=== PATIENT | female | born 1965 | race Caucasian/White ===

== ENCOUNTER → 2017-08-24 15:26 | Outpatient (CLI) | payer OTHER, SELFPAY ==
--- NOTE | 2017-08-24 | DI.US.S_ITS ---
PROCEDURE: US PERIPH VENOUS LOW EXTREM LT INDICATIONS: LEFT LEG PAIN AND SWELLING TECHNIQUE: Real-time imaging, as well as color and pulse Doppler interrogation, were performed of the lower extremity deep veins from the inguinal ligament to the popliteal fossa. COMPARISON: None. FINDINGS: The deep veins are normally compressible, and free of intraluminal thrombus. Color and pulse Doppler demonstrate normal phasic intraluminal flow. There is normal augmentation response to distal compression maneuver. IMPRESSION: No evidence of left lower extremity deep vein thrombosis. Dictated by: Ezequiel Vergara M.D. on 08/24/2017 at 15:02 Approved by: Ezequiel Vergara M.D. on 08/24/2017 at 15:02
== END ==
PROVIDERS: PCP Family Medicine; Referring Provider Orthopaedic Surgery; Visit Provider Physician Assistant Surgical
DX: M79.605 Pain in left leg (principal); M79.9 Soft tissue disorder, unspecified
CPT/HCPCS: 93971

== ENCOUNTER 2018-01-26 09:46 | Outpatient (CLI) | payer OTHER, SELFPAY ==
[2018-01-26] VITALS (11 sets, daily range): BP systolic 115–154; BP diastolic 70–99; PULSE 77–85; RESP 11–18; TEMP 35.8; O2SAT 99–100
--- NOTE | 2018-01-26 09:49 | DI.RAD.S_ITS ---
PROCEDURE: PAIN L INTERLAMINAR/CAUDAL INJ INDICATIONS: SPINAL STENOSIS FINDINGS: Fluoroscopic spot filming was performed to verify placement of spinal needles at the left L5-S1 level(s), as labeled on the films. Appropriate location(s) of the needle tip(s) was confirmed by injection of iodinated contrast. Dictated by: Tom Reis M.D. on 01/26/2018 at 13:32 Approved by: Tom Reis M.D. on 01/26/2018 at 13:33
[2018-01-26] MEDS: MIDAZOLAM 5 MG/5 ML VIAL IV (10:10)
[2018-01-26] MEDS: BUPIVACAINE 0.25% (PF) VIAL 2 ML INJ (10:10)
[2018-01-26] MEDS: IOPAMIDOL 15 ML VIAL 3 ML INJ (10:10)
[2018-01-26] MEDS: DEXAMETHASONE 10 MG/ML VIAL 20 MG INJ (10:10)
[2018-01-26] MEDS: methylPREDNISolone acetate 80 MG/ML VIAL INJ (10:10)
[2018-01-26] MEDS: fentaNYL 100 MCG/2 ML INJ 50 MCG IV (10:28)
--- NOTE | 2018-01-26 10:38 | PC.NURSE ---
procedure finished, pt able to get off table and into wheelchair w/o difficulty, pt awake and vss. taking pt back to pre procedure room.
--- NOTE | 2018-01-26 10:46 | P.PCN_ITS ---
Procedures Date/Time Date of procedure: 01/26/18 Time of procedure: 10:44 General Procedure description: PROVIDER: Artur Martinez DO Operative Note PREOP DIAGNOSIS 1. HNP WITH RADICULAR FEATURES, 2. MULTILEVEL CENTRAL STENOSIS, POST OP DIAGNOSIS 1. HNP WITH RADICULAR FEATURES, 2. MULTILEVEL CENTRAL STENOSIS, PROCEDURES 1. FLUORSCOPICALLY GUIDED CONTRAST CONTROLLED INTERLAMINAR EPIDURAL STEROID INJECTION - L5/S1 PHYSICIAN: Artur Martinez DO INDICATIONS Adriana is referred by Dr. Moy for treatment of Bilateral Foraminal Stenosis L>R LE symptoms. FINDINGS Multilevel Central Spinal Stenosis with Nerve Root Compression DESCRIPTION OF PROCEDURE Fluoroscopically guided, contrast-controlled L5/S1 translaminar epidural steroid injection. Following denial of allergy and review of potential side effects and complications, including, but not necessarily limited to, infection, allergic reaction, local tissue breakdown, temporary as well as permanent nerve injury, paralysis, stroke and possible , the patient indicated that the patient understood and agreed to proceed. An informed consent document was signed by the patient, witnessed by a nurse, and placed in the patient's chart. Additionally, other treatment options including modalities, medications, and physical therapy were reviewed with the patient. After review of previous anaesthesic history and IV conscious sedation the patient was deemed safe to proceed with todays procedure with IV conscious sedation as ASA class II designation. Safety time-out was performed to confirm patient ID, procedure to be performed and site of procedure. IV sedation was accomplished with a combination of 5mg of Versed and 50mcg of Fentanyl administered by the RN after DO order, titrated to patient comfort during the course of the procedure while the patient remained responsive to all verbal commands. In the prone position, following sterile prep and drape of the lumbar region, the L5/S1 translaminar space was identified fluoroscopically. The skin was anesthetized via a 25-gauge, 1.5-inch needle with 1% lidocaine solution. At this point, a 22-gauge short bevel spinal needle was atraumatically introduced and advanced under fluoroscopic guidance into the region of the L5/S1 translaminar space. Depth was confirmed on lateral view. Radiological data, including multiple fluoroscopic views of the lumbar spine, reveal a spinal needle at the L5/S1 translaminar space. Lateral views then show placement of the needle in the epidural space. Subsequent views show contrast material flowing superiorly and inferiorly in the epidural space. No vascular or intrathecal uptake is observed. At this point, using loss of resistance technique with saline and air, the epidural space was entered. This was confirmed following negative aspiration with injection of approximately 1.5 cc of Isovue 200, showing excellent epidural flow without vascular or intrathecal uptake. At this point, 1 cc of 1 % lidocaine solution combined with 3 cc or 20 mg of dexamethasone and 80mg Depo medrol was injected without incident. The patent tolerated the procedure without signs of symptoms of complications prior to transfer to the recovery area for further monitoring. The patient was then transferred to the recovery area where they were observed for an appropriate period of time after the injection. The patient reported a VAS score of 6 prior to the procedure and a post-procedure VAS of 0. Total Fluoroscopy Time: 11.8 seconds Total Conscious Sedation Time: 24min POST OP INSTRUCTIONS The patient was provided a Pain Log to continue to record their response to the target-specific procedure prior to follow-up visit with their referring physician. Additionally, specific post-injection care instructions and a contact number to our office were provided if concerns arise regarding possible complications associated with the procedure are suspected. Artur Martinez, Complications: none
== END 2018-01-26 11:12 | disposition home or self-care (01) ==
LOC: RAD 09:48
PROVIDERS: PCP Ophthalmology; Visit Provider Physical Medicine & Rehabilitation
DX: M51.27 Other intervertebral disc displacement, lumbosacral region (principal); M96.1 Postlaminectomy syndrome, not elsewhere classified
CPT/HCPCS: 62323; 99152; 99153; J1040; J1100; J2250; J3010

== ENCOUNTER 2018-10-20 12:08 | Outpatient (CLI) | payer OTHER, SELFPAY ==
[2018-10-20] VITALS (8 sets, daily range): BP systolic 114–147; BP diastolic 71–97; PULSE 87–99; RESP 16–18; TEMP 36.2; O2SAT 95–100
--- NOTE | 2018-10-20 12:11 | DI.RAD.S_ITS ---
PROCEDURE: PAIN L INTERLAMINAR/CAUDAL INJ INDICATIONS: SPINAL STENOSIS FINDINGS: Fluoroscopic spot filming was performed to verify placement of spinal needles at the L5-S1 level(s), as labeled on the films. Appropriate location(s) of the needle tip(s) was confirmed by injection of iodinated contrast. IMPRESSION: Fluoroscopy for pain management. Dictated by: Kadi Singleton M.D. on 10/20/2018 at 14:45 Approved by: Kadi Singleton M.D. on 10/20/2018 at 14:45
[2018-10-20] MEDS: MIDAZOLAM 5 MG/5 ML VIAL IV (13:15)
[2018-10-20] MEDS: fentaNYL 100 MCG/2 ML INJ 50 MCG IV (13:15)
[2018-10-20] MEDS: IOPAMIDOL 15 ML VIAL 3 ML INJ (13:22)
[2018-10-20] MEDS: BUPIVACAINE 0.25% (PF) VIAL 2 ML INJ (13:23)
[2018-10-20] MEDS: BETAMETHASONE 30 MG/5 ML MDV 12 MG INJ (13:23)
--- NOTE | 2018-10-20 13:27 | PC.NURSE ---
Pt tolerated procedure well. Although her legs were numb bilaterally, so we transferred her with the gurney. She was able to slide herself onto the gurney from the table. Handed report off to Taylor SOTO for continued monitoring.
--- NOTE | 2018-10-20 13:27 | PM.PROC.1 ---
Procedures Date/Time Date of procedure: 10/20/18 Time of procedure: 13:27 General Procedure description: PROVIDER: Artur Martinez DO Operative Note PREOP DIAGNOSIS 1. HNP WITH RADICULAR FEATURES, 2. MULTILEVEL CENTRAL STENOSIS, POST OP DIAGNOSIS 1. HNP WITH RADICULAR FEATURES, 2. MULTILEVEL CENTRAL STENOSIS, PROCEDURES 1. FLUORSCOPICALLY GUIDED CONTRAST CONTROLLED INTERLAMINAR EPIDURAL STEROID INJECTION - L5/S1 PHYSICIAN: Artur Martinez DO INDICATIONS Adriana is referred by Dr. Moy for treatment of Bilateral Foraminal Stenosis L>R LE symptoms. FINDINGS Multilevel Central Spinal Stenosis with Nerve Root Compression DESCRIPTION OF PROCEDURE Fluoroscopically guided, contrast-controlled L5/S1 translaminar epidural steroid injection. Following review of allergy and review of potential side effects and complications, including, but not necessarily limited to, infection, allergic reaction, local tissue breakdown, temporary as well as permanent nerve injury, paralysis, stroke and possible , the patient indicated that the patient understood and agreed to proceed. An informed consent document was signed by the patient, witnessed by a nurse, and placed in the patient's chart. Additionally, other treatment options including modalities, medications, and physical therapy were reviewed with the patient. After review of previous anaesthesic history and IV conscious sedation the patient was deemed safe to proceed with todays procedure with IV conscious sedation as ASA class II designation. Safety time-out was performed to confirm patient ID, procedure to be performed and site of procedure. IV sedation was accomplished with a combination of 3mg of Versed and 50mcg of Fentanyl administered by the RN after DO order, titrated to patient comfort during the course of the procedure while the patient remained responsive to all verbal commands. In the prone position, following sterile prep and drape of the lumbar region, the L5/S1 translaminar space was identified fluoroscopically. The skin was anesthetized via a 25-gauge, 1.5-inch needle with 1% lidocaine solution. At this point, a 22-gauge short bevel spinal needle was atraumatically introduced and advanced under fluoroscopic guidance into the region of the L5/S1 translaminar space. Depth was confirmed on lateral view. Radiological data, including multiple fluoroscopic views of the lumbar spine, reveal a spinal needle at the L5/S1 translaminar space. Lateral views then show placement of the needle in the epidural space. Subsequent views show contrast material flowing superiorly and inferiorly in the epidural space. No vascular or intrathecal uptake is observed. At this point, using loss of resistance technique with saline and air, the epidural space was entered. This was confirmed following negative aspiration with injection of approximately 1.5cc of Isovue 200, showing excellent epidural flow without vascular or intrathecal uptake. At this point, 1cc of 1% lidocaine solution combined with 3cc or 20mg of dexamethasone and 6mg of betamethasone was injected without incident. The patent tolerated the procedure without signs of symptoms of complications prior to transfer to the recovery area for further monitoring. The patient was then transferred to the recovery area where they were observed for an appropriate period of time after the injection. The patient reported a VAS score of 6 prior to the procedure and a post-procedure VAS of 0. Total Fluoroscopy Time: 11.8 seconds Total Conscious Sedation Time: 24min POST OP INSTRUCTIONS The patient was provided a Pain Log to continue to record their response to the target-specific procedure prior to follow-up visit with their referring physician. Additionally, specific post-injection care instructions and a contact number to our office were provided if concerns arise regarding possible complications associated with the procedure are suspected. Artur Martinez DO
[2018-10-20] MEDS: DEXAMETHASONE 10 MG/ML VIAL 20 MG INJ (13:39)
== END 2018-10-20 15:40 | disposition home or self-care (01) ==
LOC: RAD 12:09
PROVIDERS: PCP Ophthalmology; Visit Provider Physical Medicine & Rehabilitation
DX: M51.17 Intervertebral disc disorders with radiculopathy, lumbosacral region (principal); M48.07 Spinal stenosis, lumbosacral region
CPT/HCPCS: 62323; 99152; J0702; J1100; J2250; J3010

== ENCOUNTER → 2019-01-11 08:35 | Outpatient (CLI) | payer OTHER, SELFPAY ==
[2019-01-11 09:43] LABS: Appearance Urine UA CLEAR; Bilirubin Urine UA NEGATIVE (NEGATIVE); Color Urine UA YELLOW; Glucose Urine UA NEGATIVE (Negative); Ketones Urine UA NEGATIVE (NEGATIVE); Leukocyte Esterase Urine UA TRACE (NEGATIVE); Nitrite Urine UA POSITIVE (Negative); Occult Blood Urine UA NEGATIVE (Negative); Protein Urine UA NEGATIVE (Negative); Urobilinogen Urine UA 0.2 E.U./dL (0.2)
[2019-01-11 09:55] LABS: RBC Urine 0-1/HPF (0-5/HPF)
[2019-01-11 09:56] LABS: Add Manual Diff / Slide Review NO; Bacteria Urine Many (>30); Basophils Absolute Auto 0 /uL (0-100); Basophils Percent Auto 1.2 % (0-2); Culture Indicated Urine Specimen Cultured; Eosinophils Absolute Auto 100 /uL (0-450); Eosinophils Percent Auto 2.7 % (2-4); Hemoglobin 12.7 g/dL (12.0-16.0); Lymphocytes Absolute Auto 1500 /uL (1100-4500); Lymphocytes Percent Auto 36.5 % (25-40); Mean Corpuscular HGB Conc 33.5 % (30-36); Mean Corpuscular Hemoglobin 29.4 PG (26-34); Mean Corpuscular Volume 87.9 fL (80-100); Monocytes Absolute Auto 300 /uL (0-900); Monocytes Percent Auto 6.9 % (3-14); Neutrophils Absolute Auto 2100 /uL (1500-7000); Neutrophils Percent Auto 52.7 % (50-75); Platelet Count 201 X10^3/uL (150-400); Red Blood Cell Count 4.33 X10^6/uL (4.0-5.2); Red Cell Distribution Width 12.6 % (11.6-14.8); Squamous Epithelial Cell Urine 1-5 /HPF (0-5/HPF); WBC Urine 5-10/HPF (0-5/HPF)
[2019-01-11 10:10] LABS: Alanine Aminotransferase 53 IU/L (9-52); Albumin 4.3 g/dL (3.5-5.0); Albumin Globulin Ratio 1.5 (1.0-2.8); Alkaline Phosphatase 77 U/L (38-126); Aspartate Aminotransferase 37 IU/L (14-36); Bilirubin Total 0.6 mg/dL (0.2-1.3); Blood Urea Nitrogen 18 mg/dL (7-17); Calcium 8.9 mg/dL (8.4-10.2); Carbon Dioxide 29 mmol/L (22-32); Chloride 103 mmol/L (98-107); Cholesterol 169 mg/dL (140-199); Estimated Glomerular Filt Rate > 60.0 mL/min (>60); Globulin 2.9 g/dL (1.7-4.1); Glucose 95 mg/dL (70-100); HDL Cholesterol 67 mg/dL (40-60); HEMOLYSIS < 15 (0-50); LDL Cholesterol Calculated 84 mg/dL (<100); Sodium 141 mmol/L (137-145); Total Protein 7.2 g/dL (6.3-8.2); Triglycerides 88 mg/dL (35-150)
[2019-01-11 10:40] LABS: Thyroid Stimulating Hormone 2.68 uIU/mL (0.47-4.68)
== END ==
PROVIDERS: PCP Ophthalmology; Visit Provider Family Medicine
DX: E66.9 Obesity, unspecified (principal); I10 Essential (primary) hypertension; M79.7 Fibromyalgia; Z13.220 Encounter for screening for lipoid disorders; Z13.29 Encounter for screening for other suspected endocrine disorder
CPT/HCPCS: 36415; 80053; 80061; 81003; 81015; 84443; 85025; 87077; 87086; 87186

== ENCOUNTER → 2019-06-10 09:40 | Outpatient (CLI) | payer OTHER, SELFPAY ==
--- NOTE | 2019-06-10 09:41 | DI.MG.S_ITS ---
BILATERAL DIGITAL SCREENING MAMMOGRAM 3D/2D WITH CAD: 06/10/2019 CLINICAL: Routine screening. Comparison is made to exams dated: 02/28/2018 mammogram, 10/25/2015 mammogram, and 10/10/2012 mammogram - [facility]. The tissue of both breasts is predominantly fatty. Current study was also evaluated with a Computer Aided Detection (CAD) system. No significant masses, calcifications, or other findings are seen in either breast. There has been no significant interval change. IMPRESSION: NEGATIVE There is no mammographic evidence of malignancy. A 1 year screening mammogram is recommended. This exam was interpreted at Station ID: [id number]. NOTE: For mammograms, a report in lay terms will be sent to the patient. Approximately 15% of breast malignancies will not be visualized mammographically. In the management of a palpable breast mass, a negative mammogram must not discourage biopsy of a clinically suspicious lesion. Electronically Signed By: Amy siddiqui/kari:06/10/2019 11:24:44 letter sent: Normal Exam ACR BI-RADS Category 1: Negative 3341F
== END ==
PROVIDERS: Referring Provider Family Medicine; Visit Provider Family Medicine
DX: Z12.31 Encounter for screening mammogram for malignant neoplasm of breast (principal)
CPT/HCPCS: 77063; 77067

== ENCOUNTER → 2019-12-24 10:38 | Outpatient (CLI) | payer OTHER, SELFPAY ==
[2019-12-25 13:25] LABS: COVID19 Sendout Not Detected (Not Detect)
== END ==
PROVIDERS: PCP Family Medicine; Visit Provider Nurse Practitioner
DX: Z11.59 Encounter for screening for other viral diseases (principal)
CPT/HCPCS: 87635

== ENCOUNTER 2019-12-27 09:09 | Day surgery (SDC) | payer OTHER, SELFPAY ==
--- NOTE | 2019-12-27 | PATH_ITS ---
[facility] Accession Number: [id number] . 01 Material submitted: . colon - RANDOM COLON BIOPSIES . 01 Clinical history: . SDC . 02 Diagnosis: Random Colon, Biopsies: Colonic mucosa with no diagnostic abnormality. Negative for active, chronic, and microscopic colitis. Negative for dysplasia and malignancy. . MRV 12/29/2019 1139 Local . 02 Electronically signed: . Mandie Lilly MD, Pathologist NPI- [id number] . 01 Gross description: . Received in formalin, labeled random colon biopsies, and consists of multiple morales fragments of soft tissue measuring 1.5 x 1.0 x 0.3 cm in aggregate. The specimen is entirely submitted in cassette A1. (EA/[id number]) /V 12/28/2019 1239 Local . 02 Pathologist provided ICD-10: R19.7 . 02 CPT . 788777 Performed at: 01 [facility] [address], [place], [place] [id number] MD Herrera Og MD Phone: [phone] Performed at: 02 [facility] [address] [place], [place] [id number] MD Mandie Lilly MD Phone: [phone]
[2019-12-27 09:40] VITALS: BP 145/88; PULSE 99; RESP 16; TEMP 36.6; O2SAT 97; BMI 54.9
[2019-12-27] MEDS: LACTATED RINGERS 1,000 ML 42 ML IV (10:19)
--- NOTE | 2019-12-27 11:55 | PM.HP.1 ---
History of Present Illness History of Present Illness Chief complaint: [facility] – [place] Patient History Medical History Abnormal Pap smear of cervix (Inactive) Acute pain of right knee (Acute) Anxiety (Acute) Anxiety (Chronic) Arthritis of right knee (Acute) Back pain (Acute) Bilateral knee pain (Acute) Bilateral primary osteoarthritis of knee (Acute) BMI 50.0-59.9, adult (Acute) Carpal tunnel syndrome on both sides (Acute) Chicken pox (Resolved) Chronic back pain (Chronic) Depression (Acute) Difficult intravenous access (Acute) Endometriosis (Inactive) Essential hypertension (Acute) FH: ROSA-BSO (total abdominal hysterectomy and bilateral salpingo-oophorectomy) (Acute) Fibromyalgia (Acute) Fibromyalgia (Chronic) Foot pain (Chronic ~2013) Foraminal stenosis of lumbosacral region (Chronic) Fractures (Resolved ~2013) Heavy menstrual period (Inactive) Herniated nucleus pulposus, L5-S1 (Chronic) History of gastrointestinal disease (Chronic ~2008) History of small bowel obstruction (Acute) HTN (hypertension) (Chronic ~2016) Impaired vision (Acute) Insomnia (Acute) Irregular menstrual cycle (Inactive) Irritable bowel syndrome (Chronic) Liver hemangioma (Acute) Lumbar post-laminectomy syndrome (Chronic) Lumbosacral radiculopathy at L5 (Chronic) Mumps (Resolved) Neuropathy (Acute) Neuropathy of both feet (Acute) Obesity (Acute) Obesity (Chronic) Osteoarthritis (Chronic) Ovarian cyst (Inactive) Painful menstrual periods (Inactive) Paresthesia of lower extremity (Chronic) Peripheral neuropathy (Chronic) Pinched nerve (Acute) Polyarthritis (Acute) Polyarthritis (Chronic) PTSD (post-traumatic stress disorder) (Acute) Shoulder pain (Chronic) Spinal stenosis (Acute) Trigger finger (Acute) Vision disorder (Chronic) Vitamin D deficiency (Acute) Surgical History Anesthesia (Resolved) Cervical vertebral fusion (Acute) H/O left knee surgery (Acute) H/O reduction mammoplasty (Acute) H/O removal of cyst (Acute) H/O shoulder surgery (Acute) H/O sinus surgery (Acute) H/O toe surgery (Acute) History of abdominal surgery (Resolved) History of bladder suspension procedure (Acute) History of bowel resection (Acute) History of carpal tunnel release (Resolved) History of cholecystectomy (Acute) History of gynecologic surgery (Resolved) Family & Social History Family History Mother Arthritis Hypertension Grandfather History of heart disease Grandmother Cancer Stroke Social History: household members spouse Tobacco & Substance use: Smoking Status Never smoker alcohol intake never Substance Use Type does not use Meds Home Medications and Allergies Home Medications Medication Instructions Recorded Confirmed Type gabapentin 600 mg tablet 600 mg PO QID #360 tab 07/10/19 12/27/19 Rx celecoxib 200 mg capsule 200 mg PO BID #180 cap 10/24/19 12/27/19 Rx clonazepam 1 mg tablet 1 mg PO DAILY PRN #15 tab 12/05/19 12/27/19 Rx losartan 25 mg tablet 25 mg PO DAILY #90 tab 12/05/19 12/27/19 Rx losartan 50 mg tablet 50 mg PO DAILY #90 tab 12/05/19 12/27/19 Rx Allergies Allergy/AdvReac Type Severity Reaction Status Date / Time penicillin G Allergy Mild Rash Verified 12/27/19 09:35 cephalexin Allergy Unknown Hives Verified 12/27/19 09:35 oxycodone AdvReac Mild vomitting Verified 12/27/19 09:35 Review of Systems Review of Systems ROS: Yes All systems reviewed with the patient and are negative except as otherwise documented Exam Vital Signs (past 8 hours): - 12/27/19 09:40 Temperature 97.8 F Pulse Rate 99 H Respiratory Rate 16 Blood Pressure 145/88 H Pulse Oximetry 97 Oxygen Delivery Method Room Air Narrative Exam Narrative: Awake alert and oriented x3, pupils equal round reactive to light, oropharynx clear, heart regular rate and rhythm, lungs clear to auscultation bilaterally, abdomen nontender and nondistended, extremities without edema, no gross neurologic deficits noted Assessment & Plan Assessment & Plan narrative: Unexplained diarrhea for colonoscopy COVID-19 COVID-19 status: Negative
[2019-12-27] MEDS: fentaNYL 250 MCG/5 ML INJ IV (12:11)
[2019-12-27] MEDS: MIDAZOLAM 5 MG/5 ML VIAL IV (12:14)
[2019-12-27 12:29] VITALS: BP 129/80; PULSE 88; RESP 16; TEMP 36.4; O2SAT 98
--- NOTE | 2019-12-27 12:33 | PM.OP.ENDO ---
Operative Date/Time/Diagnoses Date of procedure: 12/27/19 Procedure & Clinicians Study performed: Colonoscopy with biopsy Moderate conscious sedation was administered by the endoscopy nurse and supervised by the endoscopist. The following parameters were monitored: Oxygen saturation, heart rate, blood pressure, and response to care. 8 mg midazolam and 150 mcg fentanyl given Same procedure as scheduled: Yes Indications: Unexplained diarrhea. Last colonoscopy was 10 years ago. Reports a history of colon polyps Procedure Notes Procedure in detail: Prior to the procedure, history and physical was performed, and patient medications and allergies were reviewed. Preprocedure nursing history and assessment was reviewed. Patient identification and proposed procedure were verified by the physician and nurse in the procedure room. The physical status of the patient was reassessed after the procedure. After informed consent was obtained including risks, benefits, and alternatives, the scope was passed under direct vision. Throughout the procedure, the patient's blood pressure, pulse, and oxygen saturations were monitored continuously. The colonoscope was introduced through the anus and advanced to the cecum as identified by the appendiceal orifice and ileocecal valve. The patient tolerated the procedure well. Bowel prep was deemed adequate to detect polyps greater than 5 mm. Digital rectal examination and perianal examinations were unremarkable. Retroflexion in the rectum revealed grade 1 internal hemorrhoids. The entire examined colon was normal appearing. Biopsies were taken throughout the entire colon to rule out microscopic colitis The terminal ileum was normal appearing Impression: Internal hemorrhoids Normal appearing colonic mucosa. Biopsied. Normal appearing terminal ileum Sedation minutes: 18 Complications: other (EBL minimal. No complications) Post-procedure Plan for aftercare: Follow-up pathology results Resume home medications Resume previous diet Follow-up with Dr. Alberto as previously recommended Patient has a contact number available for emergencies. The signs and symptoms of potential delayed complications were discussed with the patient. Return to normal activities tomorrow. Written discharge instructions were provided to the patient. Discharge home with escort
[2019-12-27 12:34] VITALS: BP 136/80; PULSE 95; RESP 20; O2SAT 98
[2019-12-27 12:38] VITALS: BP 115/75; PULSE 88; RESP 16; TEMP 36.8; O2SAT 98
[2019-12-27 12:57] VITALS: BP 147/76; PULSE 92; RESP 16; TEMP 37.1; O2SAT 99
== END 2019-12-27 12:58 | disposition home or self-care (01) ==
PROVIDERS: PCP Family Medicine; Referring Provider Family Medicine; Visit Provider Internal Medicine
PROC: 0DJD8ZZ Inspection of Lower Intestinal Tract, Via Natural or Artificial Opening Endoscopic (ICD-10-PCS; CPT 45378; principal; 2019-12-27 10:30)
DX: R19.7 Diarrhea, unspecified (principal); K64.0 First degree hemorrhoids; Z86.010 Personal history of colon polyps; I10 Essential (primary) hypertension; E66.9 Obesity, unspecified; M79.7 Fibromyalgia; F41.9 Anxiety disorder, unspecified; F32.9 Major depressive disorder, single episode, unspecified; Z68.43 Body mass index [BMI] 50.0-59.9, adult
CPT/HCPCS: 45380; J2250; J3010

== ENCOUNTER → 2020-01-22 08:58 | Outpatient (CLI) | payer OTHER, SELFPAY ==
--- NOTE | 2020-01-22 | DI.CT.S_ITS ---
PROCEDURE: CT ABDOMEN PELVIS W CON INDICATIONS: Generalized abdominal pain TECHNIQUE: After the administration of oral and intravenous contrast, 5 mm thick sections acquired from the diaphragms to the symphysis. 5 mm thick coronal and sagittal reformats were performed. For radiation dose reduction, the following was used: automated exposure control, adjustment of mA and/or kV according to patient size. COMPARISON: None. FINDINGS: Image quality: Excellent. ABDOMEN: Lung bases: Right basilar atelectasis. Heart size is normal. Solid organs: There is hepatic steatosis. Liver is normal in size. There is a 1.0 x 1.5 cm low-density nodule in the right hepatic lobe (segment VII). Gallbladder is surgically absent . Biliary system is non-dilated. Pancreas enhances normally. Spleen is normal in size and enhancement. No adrenal nodules. Kidneys are normal in size and enhancement, without hydronephrosis. There is a large cyst in left kidney measuring 6.7 x 7.0 x 8.3 cm. Peritoneum and bowel: Stomach, small bowel, and colon loops are normal in caliber and wall thickness. No free fluid or air. Nodes and vessels: No retroperitoneal or mesenteric adenopathy. Aorta and inferior vena cava are normal in caliber. Miscellaneous: No ventral hernias. PELVIS: Genitourinary: Bladder wall thickness is normal. There is a 1.0 x 2.6 cm calculus in the dependent bladder lumen. Miscellaneous: No inguinal hernias or adenopathy. Bones: No suspicious bony lesions. No vertebral body compression fractures. IMPRESSION: 1. A cause for generalized abdominal pain is not definitively identified. 2. Hepatic steatosis. 3. A 1.0 x 1.5 cm low-density nodule in the posterior segment of the right hepatic lobe, most likely a cyst or hemangioma. 4. A large cyst in the right kidney. 5. A 1.0 x 2.6 cm stone in the bladder lumen. Dictated by: Kadi Singleton M.D. on 01/22/2020 at 17:11 Approved by: Kadi Singleton M.D. on 01/22/2020 at 18:32
== END ==
PROVIDERS: PCP Family Medicine; Referring Provider Family Medicine; Visit Provider Internal Medicine Gastroenterology
DX: R10.84 Generalized abdominal pain (principal); K76.0 Fatty (change of) liver, not elsewhere classified; N28.1 Cyst of kidney, acquired; K76.9 Liver disease, unspecified; N21.0 Calculus in bladder
CPT/HCPCS: 74177; Q9967

== ENCOUNTER → 2021-02-21 17:35 | Outpatient (CLI) | payer OTHER, SELFPAY ==
--- NOTE | 2021-02-21 | DI.MG.S_ITS ---
BILATERAL DIGITAL SCREENING MAMMOGRAM 3D/2D WITH CAD: 02/21/2021 CLINICAL: Routine screening. Comparison is made to exams dated: 06/10/2019 mammogram - [facility], 02/28/2018 mammogram, and 10/25/2015 mammogram - [facility]. The tissue of both breasts is predominantly fatty. Current study was also evaluated with a Computer Aided Detection (CAD) system. No significant masses, calcifications, or other findings are seen in either breast. There has been no significant interval change. IMPRESSION: NEGATIVE There is no mammographic evidence of malignancy. A 1 year screening mammogram is recommended. This exam was interpreted at Station ID: [id number]. NOTE: For mammograms, a report in lay terms will be sent to the patient. Approximately 15% of breast malignancies will not be visualized mammographically. In the management of a palpable breast mass, a negative mammogram must not discourage biopsy of a clinically suspicious lesion. Electronically Signed By: Amy siddiqui/kari:02/24/2021 09:49:47 letter sent: Normal Exam ACR BI-RADS Category 1: Negative 3341F
== END ==
PROVIDERS: PCP Family Medicine; Referring Provider Family Medicine; Visit Provider Family Medicine
DX: Z12.31 Encounter for screening mammogram for malignant neoplasm of breast (principal)
CPT/HCPCS: 77063; 77067

== ENCOUNTER → 2021-02-27 10:59 | Outpatient (CLI) | payer OTHER, SELFPAY ==
--- NOTE | 2021-02-27 | DI.CT.S_ITS ---
PROCEDURE: CT ABDOMEN WO/W CON INDICATIONS: LIVER CYST TECHNIQUE: 4 phase scanning was performed. Non-contrast 5 mm axial sections acquired from the diaphragm to the iliac crests. Following the administration of intravenous contrast, 5 mm thick arterial-phase, portal venous-phase, and 5-minute delayed phase images were acquired through the liver. 5 mm thick coronal and sagittal reformats were performed. For radiation dose reduction, the following was used: automated exposure control, adjustment of mA and/or kV according to patient size. COMPARISON: [facility] , MR, ABDOMEN W&W/O CONTRAST, 11/12/2008, 8:49. [facility], CT, CT ABDOMEN PELVIS W CON, 01/22/2020, 9:52. FINDINGS: Image quality: Excellent. Lung bases: Right lung base atelectasis. No pleural effusion. Heart size is normal. Liver: A few small hypodensities in the liver. For example in the right lobe of the liver measuring 1.4 cm, (5/), remotely 1.5 cm in 2008. There is no enhancement. On the remote CT these are T2 hyperintense and nonenhancing. These are consistent with benign cysts. Geographic hepatic steatosis. Other solid organs: Gallbladder is surgically absent. Biliary system is non dilated. Pancreas is normal in morphology. Spleen is normal in size and enhancement. No adrenal nodules. Both kidneys demonstrate normal size and enhancement, without hydronephrosis or nephrolithiasis. Left kidney exophytic cyst measuring 7.6 cm, (4/40), remotely 8.6 cm in 2009. The cyst has a thin septation. No enhancement. Nodes and vessels: No retroperitoneal or mesenteric adenopathy by size criteria. Aorta and inferior vena cava are normal in size. Bowel and peritoneum: Unenhanced bowel loops are normal in caliber. No free fluid or air. Clips in the pelvis on the account services manager image. Bones: No suspicious bony lesions. No vertebral body compression fractures. Miscellaneous: No ventral hernias. Ventral abdominal wall mesh. IMPRESSION: 1. Small liver hypodensities are consistent with benign cysts. 2. Hepatic steatosis. 3. Mildly complex large left kidney cyst is decreased in size compared to 2009 suggesting a benign etiology. Dictated by: Ajay Otto M.D. on 02/28/2021 at 7:56 Approved by: Ajay Otto M.D. on 02/28/2021 at 8:08
== END ==
PROVIDERS: PCP Family Medicine; Referring Provider Internal Medicine Gastroenterology; Visit Provider Internal Medicine Gastroenterology
DX: K76.89 Other specified diseases of liver (principal); K76.0 Fatty (change of) liver, not elsewhere classified; N28.1 Cyst of kidney, acquired
CPT/HCPCS: 74170; Q9967

== ENCOUNTER → 2021-07-10 10:38 | Outpatient (CLI) | payer OTHER, SELFPAY ==
[2021-07-10 11:29] LABS: Add Manual Diff / Slide Review NO; Basophils Absolute Auto 0 /uL (0-100); Basophils Percent Auto 1.1 % (0-2); Eosinophils Absolute Auto 100 /uL (0-450); Eosinophils Percent Auto 2.4 % (2-4); Hematocrit 36.6 % (36-46); Hemoglobin 12.2 g/dL (12.0-16.0); Lymphocytes Absolute Auto 1400 /uL (1100-4500); Lymphocytes Percent Auto 33.6 % (25-40); Mean Corpuscular HGB Conc 33.4 % (30-36); Mean Corpuscular Hemoglobin 29.3 PG (26-34); Mean Corpuscular Volume 87.8 fL (80-100); Monocytes Absolute Auto 300 /uL (0-900); Monocytes Percent Auto 6.6 % (3-14); Neutrophils Absolute Auto 2300 /uL (1500-7000); Neutrophils Percent Auto 56.3 % (50-75); Platelet Count 182 X10^3/uL (150-400); Red Blood Cell Count 4.16 X10^6/uL (4.0-5.2); Red Cell Distribution Width 13.2 % (11.6-14.8); White Blood Cell Count 4.2 X10^3/uL (4.5-11.0)
[2021-07-10 12:53] LABS: HEMOLYSIS < 15 (0-50); Potassium 4.5 mmol/L (3.4-5.1)
[2021-07-10 12:54] LABS: Alanine Aminotransferase 15 IU/L (<35); Albumin 4.3 g/dL (3.5-5.0); Albumin Globulin Ratio 1.7 (1.0-2.8); Alkaline Phosphatase 81 U/L (38-126); Aspartate Aminotransferase 20 IU/L (14-36); BUN Creatinine Ratio 28.2 (6-22); Bilirubin Total 0.5 mg/dL (0.2-1.3); Blood Urea Nitrogen 20 mg/dL (7-17); Carbon Dioxide 29 mmol/L (22-32); Chloride 103 mmol/L (98-107); Cholesterol 196 mg/dL (140-199); Estimated Glomerular Filt Rate > 60.0 mL/min (>60); Globulin 2.5 g/dL (1.7-4.1); Glucose 90 mg/dL (70-100); HDL Cholesterol 78 mg/dL (40-60); LDL Cholesterol Calculated 99 mg/dL (<100); Sodium 138 mmol/L (137-145); Total Protein 6.8 g/dL (6.3-8.2); Triglycerides 93 mg/dL (35-150)
== END ==
PROVIDERS: PCP Family Medicine; Referring Provider Family Medicine; Visit Provider Family Medicine
DX: I10 Essential (primary) hypertension (principal)
CPT/HCPCS: 36415; 80053; 80061; 85025

== ENCOUNTER → 2021-10-28 13:55 | Outpatient (CLI) | payer OTHER, SELFPAY ==
--- NOTE | 2021-10-28 13:58 | DI.RAD.S_ITS ---
PROCEDURE: XR CHEST 2V INDICATIONS: chest congestion/chest heaviness TECHNIQUE: 2 views of the chest were acquired. COMPARISON: None. FINDINGS: Surgical changes and devices: Postsurgical changes are seen at the lower cervical spine. Probable right upper quadrant cholecystectomy clips. Postsurgical widening of the right acromioclavicular joint. Lungs and pleura: Mild prominence of the central pulmonary vasculature. No acute consolidation. No pleural effusions or pneumothorax. Mediastinum: Mediastinal contours are normal. Heart size is normal. Bones and chest wall: No suspicious bony abnormalities. Soft tissues appear unremarkable. IMPRESSION: Mild prominence of the central pulmonary vasculature without an acute consolidation. Dictated by: Bill Fonseca M.D. on 10/28/2021 at 16:59 Approved by: Bill Fonseca M.D. on 10/28/2021 at 17:01
== END ==
PROVIDERS: PCP Family Medicine; Referring Provider Family Medicine; Visit Provider Family Medicine
DX: R07.89 Other chest pain (principal); R09.89 Other specified symptoms and signs involving the circulatory and respiratory systems
CPT/HCPCS: 71046

== ENCOUNTER 2022-03-11 22:29 | Emergency (ER) | payer OTHER, SELFPAY ==
--- NOTE | 2022-03-11 22:34 | ED.CHESTPAIN ---
HPI - Chest Pain General Chief Complaint: Chest Pain Stated Complaint: chest pain, rapid heartrate Time Seen by Provider: 03/11/22 22:32 History of Present Illness HPI narrative: 56-year-old female nonsmoker with history of small-bowel obstruction, osteoarthritis, opioid use presents with her in the chief complaint of retrosternal chest pressure with radiation to her back that has been present persistently for many days if not longer. She denies obvious provocation or palliation of this discomfort. She states that it seems to be worse when her blood pressure is running high and improve, however when her blood pressure normalizes. She states that she has been a woken from sleep at least once with a rapid heart rate but does not her pulse was. She denies dizziness, weakness or lightheadedness. She denies fever or chills. She is had no runny nose, sore throat or cough. She denies exertional symptoms such or exercise intolerance. She denies any recent trauma or injury, history of blood clot or cancer. Related Data Home Medications Medication Instructions Recorded Confirmed oxybutynin chloride 10 mg 10 mg PO DAILY 09/18/20 01/28/21 tablet,extended release 24 hr Previous Rx's Medication Instructions Recorded semaglutide 7 mg tablet 7 mg PO DAILY weight loss #90 tabs 01/23/22 clonazepam 1 mg tablet 1 mg PO DAILY PRN Anxiety #15 tabs 01/27/22 hydrocodone 10 mg-acetaminophen 1 tab PO Q8H PRN pain #90 tabs 01/28/22 325 mg tablet celecoxib 200 mg capsule 200 mg PO BID #180 caps 02/17/22 gabapentin 600 mg tablet 600 mg PO QID #360 tabs 02/17/22 losartan 25 mg tablet See Rx Instructions .Route 02/17/22 .COMPLEX #90 tabs losartan 50 mg tablet See Rx Instructions .Route 02/17/22 .COMPLEX #90 tabs pantoprazole 40 mg tablet,delayed 40 mg PO DAILY #30 tabs 03/12/22 release (Protonix) Allergies Allergy/AdvReac Type Severity Reaction Status Date / Time penicillin G Allergy Mild Rash Verified 03/11/22 22:49 cephalexin Allergy Unknown Hives Verified 03/11/22 22:49 oxycodone AdvReac Mild vomitting Verified 03/11/22 22:49 Review of Systems Review of Systems Narrative: GENERAL: Denies chills, fatigue, malaise, fever, sweats. HEENT: Denies sinus pain, ear pain, sore throat, difficulty swallowing, dizziness. RESPIRATORY: See HPI CARDIOVASCULAR: See HPI GASTROINTESTINAL: Denies nausea, vomiting, abdominal pain, diarrhea, constipation, melena. : Denies dysuria, frequency, incontinence, hematuria, urinary retention. MUSCULOSKELETAL: denies weakness, joint pain, or bony pain SKIN: Denies rash, skin lesions, or other NEUROLOGIC: Denies weakness, headache, numbness, change in speech, confusion, seizures, incoordination. PSYCHIATRIC: No concerning psychosocial issues. 12 point review of systems is negative except for those stated above Patient History Medical History Abnormal Pap smear of cervix Acute pain of right knee Anxiety Anxiety Arthritis of right knee Back pain Bilateral knee pain Bilateral primary osteoarthritis of knee BMI 50.0-59.9, adult Carpal tunnel syndrome on both sides Chicken pox Chronic back pain Chronic pain of left ankle Chronic, continuous use of opioids Depression Difficult intravenous access Endometriosis Essential hypertension FH: ROSA-BSO (total abdominal hysterectomy and bilateral salpingo-oophorectomy) Fibromyalgia Fibromyalgia Foot pain (~2013) Foraminal stenosis of lumbosacral region Fractures (~2013) Heavy menstrual period Herniated nucleus pulposus, L5-S1 History of gastrointestinal disease (~2008) History of small bowel obstruction HTN (hypertension) (~2016) Impaired vision Insomnia Irregular menstrual cycle Irritable bowel syndrome Liver hemangioma Lumbar post-laminectomy syndrome Lumbosacral radiculopathy at L5 Mumps Neuropathy Neuropathy of both feet Obesity Obesity Osteoarthritis Ovarian cyst Painful menstrual periods Paresthesia of lower extremity Peripheral neuropathy Pinched nerve Polyarthritis Polyarthritis PTSD (post-traumatic stress disorder) Shoulder pain Spinal stenosis Trigger finger Vision disorder Vitamin D deficiency Surgical History Anesthesia Cervical vertebral fusion H/O left knee surgery H/O reduction mammoplasty H/O removal of cyst H/O shoulder surgery H/O sinus surgery H/O toe surgery History of abdominal surgery History of bladder suspension procedure History of bowel resection History of carpal tunnel release History of cholecystectomy History of gynecologic surgery Family History Mother Arthritis Hypertension Grandfather History of heart disease Grandmother Cancer Stroke Social History household members: spouse Smoking Status: Never smoker alcohol intake: never Smoking Status: Never smoker Substance Use Type: does not use Exam Narrative Exam Narrative: GENERAL: [56] year old patient appears stated age. Well-developed patient, in mild distress. HEAD: Atraumatic. Normocephalic. EYES: Pupils equal round and reactive. Extraocular motions intact. No scleral icterus. No injection or drainage. ENT: Nose without bleeding, purulent drainage. Throat without erythema, tonsillar hypertrophy or exudate. Airway patent. NECK: Trachea midline. Non tender CARDIOVASCULAR: Regular rate and rhythm without murmurs, gallops, or rubs. RESPIRATORY: Clear to auscultation. Breath sounds equal bilaterally. No wheezes, rales, or rhonchi. GASTROINTESTINAL: Abdomen soft, non-tender, nondistended. EXTREMITIES: No edema or joint tenderness. BACK: Nontender without deformity or crepitance. No flank tenderness. NEURO: AOx3. SKIN: No rash or erythema of visible areas Initial Vital Signs Initial Vital Signs: Vital Signs Pulse Rate 79 03/11/22 22:39 Pulse Oximetry 97 03/11/22 22:39 Scores HEART Score Heart Score history: Slightly Suspicious Heart Score EKG: Non-Specific repolarization disturbance Heart Score Age: 45-64 years old Heart Score risk factors: No known risk factors Heart Score troponin: < or = to normal limit Heart Score Total: 2 Course Orders Ordered: ED Orders 03/11/22 22:36 XR chest 1V Stat EKG-12 Lead Stat 03/11/22 22:40 Complete Blood Count AUTO DIFF Stat Comprehensive Metabolic Panel Stat D Dimer Stat Lipase Stat NT-proBNP (BNP-Adult 18+) Stat Procalcitonin Stat Prothrombin Time INR Stat Troponin & CK Cardiac Panel Stat 03/11/22 22:45 Covid-19 + FLU A/B + RSV - PCR Stat 03/12/22 01:29 Troponin & CK Cardiac Panel Stat Discontinued Medications Al Hydrox/Mg Hydrox/Simethicone 20 ml/ Lidocaine HCl 15 ml 0 ml PO NOW ONE Stop: 03/12/22 00:58 Last Admin: 03/12/22 01:20 Dose: 35 ml Documented By: SEAN Sodium Chloride (Normal Saline 0.9%) 1,000 mls @ 1,000 mls/hr IV BOLUS ONE Stop: 03/11/22 23:34 Pantoprazole Sodium (Pantoprazole 40 Mg Vial) 40 mg IV NOW ONE Stop: 03/12/22 00:58 Last Admin: 03/12/22 01:24 Dose: 40 mg Documented By: SEAN Reevaluation(s) Reevaluation #1: 0100 - patient still having 4/10 chest pressure with radiation to her back Reevaluation #2: 0149 -patient has had complete resolution of symptoms after Protonix and GI cocktail. She is resting comfortably awaiting results of 2nd troponin Vital Signs Vital signs: Vital Signs - 8 hr 03/11/22 22:49 03/11/22 22:39 03/11/22 23:00 Temperature 97.6 F Pulse Rate 73 79 66 Respiratory Rate 18 12 Blood Pressure 164/78 H Pulse Oximetry 97 97 98 Oxygen Delivery Method Room Air 03/11/22 23:30 03/12/22 00:58 Temperature Pulse Rate 67 68 Respiratory Rate 11 L 23 Blood Pressure Pulse Oximetry 96 92 Oxygen Delivery Method MDM - Chest Pain Lab Data Result diagrams: 03/11/22 22:40 03/11/22 22:40 Labs: Lab Results 03/11/22 03/11/22 03/11/22 Range/Units 22:40 22:40 22:40 WBC 6.0 (4.5-11.0) X10^3/uL RBC 4.28 (4.0-5.2) X10^6/uL Hgb 12.6 (12.0-16.0) g/dL Hct 37.8 (36-46) % MCV 88.3 (80-100) fL MCH 29.3 (26-34) PG MCHC 33.2 (30-36) % RDW 13.2 (11.6-14.8) % Plt Count 205 (150-400) X10^3/uL Neut % (Auto) 50.2 (50-75) % Lymph % (Auto) 38.8 (25-40) % [place] % (Auto) 7.7 (3-14) % Eos % (Auto) 2.1 (2-4) % Baso % (Auto) 1.2 (0-2) % Neut # (Auto) 3000 (7938-0751) /uL Lymph # (Auto) 2300 (8349-9602) /uL [place] # (Auto) 500 (0-900) /uL Eos # (Auto) 100 (0-450) /uL Baso # (Auto) 100 (0-100) /uL PT 10.8 (10.1-12.7) SECONDS INR 0.9 (0.9-1.3) D-Dimer 322 (<500) ng/ml Sodium 139 (137-145) mmol/L Potassium 3.9 (3.4-5.1) mmol/L Chloride 103 (98-107) mmol/L Carbon Dioxide 28 (22-32) mmol/L BUN 20 H (7-17) mg/dL Creatinine 0.69 (0.52-1.04) mg/dL Estimated GFR > 60 (>60) mL/min BUN/Creatinine Ratio 29.0 H (6-22) Glucose 105 H (70-100) mg/dL Calcium 9.0 (8.4-10.2) mg/dL Total Bilirubin 0.3 (0.2-1.3) mg/dL AST 24 (14-36) IU/L ALT 20 (<35) IU/L Alkaline Phosphatase 114 (38-126) U/L Total Creatine Kinase 65 (30-135) U/L CK-MB (CK-2) TNP CK-MB (CK-2) Rel Index TNP Troponin I < 0.012 (0.01-0.034) ng/mL NT-Pro-B Natriuret Pep (<125) pg/mL Total Protein 7.2 (6.3-8.2) g/dL Albumin 4.3 (3.5-5.0) g/dL Globulin 2.9 (1.7-4.1) g/dL Albumin/Globulin Ratio 1.5 (1.0-2.8) Lipase 126 (23-300) U/L Procalcitonin (<0.5) ng/mL 03/11/22 03/11/22 03/12/22 Range/Units 22:40 22:40 01:29 WBC (4.5-11.0) X10^3/uL RBC (4.0-5.2) X10^6/uL Hgb (12.0-16.0) g/dL Hct (36-46) % MCV (80-100) fL MCH (26-34) PG MCHC (30-36) % RDW (11.6-14.8) % Plt Count (150-400) X10^3/uL Neut % (Auto) (50-75) % Lymph % (Auto) (25-40) % [place] % (Auto) (3-14) % Eos % (Auto) (2-4) % Baso % (Auto) (0-2) % Neut # (Auto) (0569-8685) /uL Lymph # (Auto) (8062-3089) /uL [place] # (Auto) (0-900) /uL Eos # (Auto) (0-450) /uL Baso # (Auto) (0-100) /uL PT (10.1-12.7) SECONDS INR (0.9-1.3) D-Dimer (<500) ng/ml Sodium (137-145) mmol/L Potassium (3.4-5.1) mmol/L Chloride (98-107) mmol/L Carbon Dioxide (22-32) mmol/L BUN (7-17) mg/dL Creatinine (0.52-1.04) mg/dL Estimated GFR (>60) mL/min BUN/Creatinine Ratio (6-22) Glucose (70-100) mg/dL Calcium (8.4-10.2) mg/dL Total Bilirubin (0.2-1.3) mg/dL AST (14-36) IU/L ALT (<35) IU/L Alkaline Phosphatase (38-126) U/L Total Creatine Kinase 58 (30-135) U/L CK-MB (CK-2) TNP CK-MB (CK-2) Rel Index TNP Troponin I (0.01-0.034) ng/mL NT-Pro-B Natriuret Pep 54 (<125) pg/mL Total Protein (6.3-8.2) g/dL Albumin (3.5-5.0) g/dL Globulin (1.7-4.1) g/dL Albumin/Globulin Ratio (1.0-2.8) Lipase (23-300) U/L Procalcitonin 0.04 (<0.5) ng/mL Imaging Data Chest x-ray: Radiologist's Impression: Close Chest X-Ray (Signed) Herrera Sainz - 03/11/22 Chest X-Ray (Signed) Bill Fonseca - 10/28/[address] (Signed) FamAjay - 02/27/21 Mammogram Screening (Signed) Amy Lazcano - 02/21/21 Abdomen/Pelvis CT (Addendum) David Singleton - 01/22/20 Telemetry Strips 12/27/19 Mammogram Screening (Signed) Amy Lazcano - 06/10/19 Injection Lumbar, Sacrum (Signed) David Singleton - 10/20/18 Injection Lumbar, Sacrum (Signed) Tom Reis - 01/26/18 Vascular Ultrasound (Signed) Ezequiel Vergara - 08/24/17 Lumbar Spine X-Ray (Signed) David Singleton - 08/12/17 EKG Rpt. 07/26/17 [place] [address] XRay Report Signed Patient: Adriana Durant MR#: [id number] : 1965 Acct:[id number] Age/Sex: 56 / F Date of Service: 03/11/22 Loc: ED Accession Number: [id number] ?? Procedure: XR chest 1V Ordering Provider: Wilberto Lizama D.O. PROCEDURE:? XR CHEST 1V ? INDICATIONS:? chest pain ? TECHNIQUE:? One view of the chest was acquired.? ? COMPARISON:? [facility], , XR CHEST 2V, 10/28/2021, 14:49. ? FINDINGS:? ? Surgical changes and devices:? None.? ? Lungs and pleura:? Lungs are clear.? No pleural effusions or pneumothorax.? ? Mediastinum:? Mediastinal contours appear normal.? Heart size is normal.? ? Bones and chest wall:? No suspicious bony lesions.? Overlying soft tissues appear unremarkable.? ? IMPRESSION:? ? 1.? No acute cardiopulmonary disease. ? ? ? Dictated by: Herrera Sainz M.D. on 03/12/2022 at 0:26 ? ? Approved by: Herrera Sainz M.D. on 03/12/2022 at 0:26 ? ECG Data Interpretation: [2251 EKG is normal sinus rhythm rate [66 ] and free of any signs of ischemia or ectopy. No ST segmental elevation or depression. No T wave inversions MDM Narrative Medical decision making narrative: 56-year-old female with history of hypertension irritable bowel syndrome presents with her in the chief complaint of rapid heart rate, elevated blood pressure and epigastric pain with radiation to her back. Differential diagnosis includes cardiac ischemia, pulmonary embolism, hypertensive emergency, GERD, esophageal spasm, dissection among others. EKGs demonstrate no ischemic or occlusive changes such as ST elevations, depressions or T-wave inversions. Chest x-ray without evidence of acute cardiopulmonary disease, confirmed by Radiology. Labs are very reassuring including troponin x2 which is negative. Pulmonary embolism considered unlikely given D-dimer well below age corrected cutoff, no indication for advanced imaging. Heart score 2, symptoms completely resolved after Protonix and GI cocktail raising the suspicion of a GI diagnosis. Prior chart notes from primary care provider and GI reviewed including imaging from prior visits. At completion of visit a GI source seems most likely and cardiac ischemia, pulmonary embolism and other significant diagnoses requiring specific intervention seem much less likely. Patient appropriate for discharge. Questions answered to the apparent satisfaction of patient and her . Return precautions including worsening or persistent chest pain, shortness of breath, persistent vomiting, fever, syncope and other bothersome symptoms related to patient who verifies her understanding. Prescription sent to pharmacy of choice. Patient encouraged to avoid alcohol, nicotine, spicy and fatty foods. Close follow-up with primary care provider. Discharge Plan Departure Patient Disposition: Home Clinical Impression: Acute epigastric pain Instructions: DI for Epigastric Pain Activity Restrictions/Additional Instructions: *You have been diagnosed with [atypical chest pain. As we discussed your history and physical exam as well as EKGs, x-ray, labs including repeat troponin are very reassuring, as is your response to therapies.] *What to do: *Please continue to take your regular medications as directed. [x ] New medication prescriptions sent to your pharmacy: [ [facility]] [ ] New medication written as a paper prescription [ ] No new medications given *Please follow up with your primary care provider in 2-3 days, call for an appointment. Let them know you were seen in the Emergency Department and that we ask that you be seen in follow up. We will electronically transmit a record of today's note if your PCP is in our system * as we discussed please avoid spicy foods, alcohol, nicotine, fatty foods as they very well could worsen your symptoms *Return to Emergency Department if you should have any new, worsening or concerning symptoms, such as [fever greater than 101 F, shaking chills, worsening pain, persistent vomiting or other bothersome symptoms] Prescriptions: New pantoprazole [Protonix] 40 mg tablet,delayed release (DR/EC) 40 mg PO DAILY Qty: 30 0RF No Action semaglutide 7 mg tablet 7 mg PO DAILY Qty: 90 3RF clonazepam 1 mg tablet 1 mg PO DAILY PRN (Reason: Anxiety) Qty: 15 2RF Rx Instructions: 15 tabs must last 30 days hydrocodone-acetaminophen 10-325 mg tablet 1 tab PO Q8H PRN (Reason: pain) Qty: 90 0RF celecoxib 200 mg capsule 200 mg PO BID Qty: 180 2RF gabapentin 600 mg tablet 600 mg PO QID Qty: 360 2RF losartan 25 mg tablet See Rx Instructions .ROUTE .COMPLEX Qty: 90 3RF Dose Instruction: Take 1 tablet by mouth daily along with 50mg tablet (total: 75mg daily) Need appointment Rx Instructions: Take 1 tablet by mouth daily along with 50mg tablet (total: 75mg daily) losartan 50 mg tablet See Rx Instructions .ROUTE .COMPLEX Qty: 90 3RF Dose Instruction: Take 1 tablet by mouth daily along with 25mg tablet (total: 75mg daily) Need appointment Rx Instructions: Take 1 tablet by mouth daily along with 25mg tablet (total: 75mg daily) oxybutynin chloride 10 mg tablet extended release 24hr 10 mg PO DAILY Referrals: Art Clark DO [Primary Care Provider] -
--- NOTE | 2022-03-11 22:36 | DI.RAD.S_ITS ---
PROCEDURE: XR CHEST 1V INDICATIONS: chest pain TECHNIQUE: One view of the chest was acquired. COMPARISON: [facility], CR, XR CHEST 2V, 10/28/2021, 14:49. FINDINGS: Surgical changes and devices: None. Lungs and pleura: Lungs are clear. No pleural effusions or pneumothorax. Mediastinum: Mediastinal contours appear normal. Heart size is normal. Bones and chest wall: No suspicious bony lesions. Overlying soft tissues appear unremarkable. IMPRESSION: 1. No acute cardiopulmonary disease. Dictated by: Herrera Sainz M.D. on 03/12/2022 at 0:26 Approved by: Herrera Sainz M.D. on 03/12/2022 at 0:26
[2022-03-11 22:39] VITALS: PULSE 79; O2SAT 97
[2022-03-11 22:49] VITALS: BP 164/78; PULSE 73; RESP 18; TEMP 36.4; O2SAT 97; BMI 52.9
[2022-03-11 22:53] LABS: Add Manual Diff / Slide Review NO; Basophils Absolute Auto 100 /uL (0-100); Basophils Percent Auto 1.2 % (0-2); Eosinophils Absolute Auto 100 /uL (0-450); Eosinophils Percent Auto 2.1 % (2-4); Hematocrit 37.8 % (36-46); Hemoglobin 12.6 g/dL (12.0-16.0); Lymphocytes Absolute Auto 2300 /uL (1100-4500); Lymphocytes Percent Auto 38.8 % (25-40); Mean Corpuscular HGB Conc 33.2 % (30-36); Mean Corpuscular Hemoglobin 29.3 PG (26-34); Mean Corpuscular Volume 88.3 fL (80-100); Monocytes Absolute Auto 500 /uL (0-900); Monocytes Percent Auto 7.7 % (3-14); Neutrophils Absolute Auto 3000 /uL (1500-7000); Neutrophils Percent Auto 50.2 % (50-75); Platelet Count 205 X10^3/uL (150-400); Red Blood Cell Count 4.28 X10^6/uL (4.0-5.2); Red Cell Distribution Width 13.2 % (11.6-14.8)
[2022-03-11 22:58] LABS: INR 0.9 (0.9-1.3); Prothrombin Time 10.8 SECONDS (10.1-12.7)
[2022-03-11 23:00] VITALS: PULSE 66; RESP 12; O2SAT 98
[2022-03-11 23:00] LABS: D Dimer 322 ng/ml (<500)
[2022-03-11 23:30] VITALS: PULSE 67; RESP 11; O2SAT 96
[2022-03-11 23:33] LABS: NT-proBNP (BNP-Adult 18+) 54 pg/mL (<125)
[2022-03-11 23:40] LABS: Alanine Aminotransferase 20 IU/L (<35); Albumin 4.3 g/dL (3.5-5.0); Albumin Globulin Ratio 1.5 (1.0-2.8); Alkaline Phosphatase 114 U/L (38-126); Aspartate Aminotransferase 24 IU/L (14-36); Bilirubin Total 0.3 mg/dL (0.2-1.3); Blood Urea Nitrogen 20 mg/dL (7-17); Carbon Dioxide 28 mmol/L (22-32); Chloride 103 mmol/L (98-107); Creatine Kinase 65 U/L (30-135); Estimated Glomerular Filt Rate > 60 mL/min (>60); Globulin 2.9 g/dL (1.7-4.1); Glucose 105 mg/dL (70-100); HEMOLYSIS < 15 (0-50); Lipase 126 U/L (23-300); Potassium 3.9 mmol/L (3.4-5.1); Procalcitonin 0.04 ng/mL (<0.5); Sodium 139 mmol/L (137-145); Total Protein 7.2 g/dL (6.3-8.2)
[2022-03-11 23:51] LABS: Troponin I < 0.012 ng/mL (0.01-0.034)
[2022-03-12 00:58] VITALS: PULSE 68; RESP 23; O2SAT 92
[2022-03-12 01:00] VITALS: PULSE 69; RESP 16; O2SAT 96
[2022-03-12] MEDS: MAG HYDROX/ALUMINUM/SIMETH SUS 20 ML, LIDOCAINE VISCOUS 2% 15 ML PO (01:20)
[2022-03-12] MEDS: PANTOPRAZOLE 40 MG VIAL IV (01:24)
[2022-03-12 01:30] VITALS: PULSE 67; RESP 18; O2SAT 96
[2022-03-12 01:45] LABS: Creatine Kinase 58 U/L (30-135)
[2022-03-12 01:58] LABS: Troponin I < 0.012 ng/mL (0.01-0.034)
[2022-03-12 02:00] VITALS: PULSE 65; RESP 27; O2SAT 96
== END 2022-03-12 02:28 | disposition home or self-care (01) ==
PROVIDERS: Emergency Provider Emergency Medicine; PCP Family Medicine
DX: R10.13 Epigastric pain (principal); R07.9 Chest pain, unspecified
CPT/HCPCS: 36415; 71045; 80053; 82550; 82553; 83690; 83880; 84145; 84484; 85025; 85379; 85610; 93005; 96374; 99284; C9113

== ENCOUNTER → 2022-03-16 14:50 | Outpatient (CLI) | payer OTHER, SELFPAY ==
--- NOTE | 2022-03-16 14:51 | DI.MG.S_ITS ---
BILATERAL DIGITAL SCREENING MAMMOGRAM 3D/2D WITH CAD: 03/16/2022 CLINICAL: Routine screening. Comparison is made to exams dated: 02/21/2021 mammogram, 06/10/2019 mammogram - [facility], 02/28/2018 mammogram, and 10/25/2015 mammogram - [facility]. Both breasts are almost entirely fatty (category a/<25% glandular tissue). Current study was also evaluated with a Computer Aided Detection (CAD) system. No significant masses, calcifications, or other findings are seen in either breast. There has been no significant interval change. IMPRESSION: NEGATIVE There is no mammographic evidence of malignancy. A 1 year screening mammogram is recommended. Based on the Tyrer Cuzick model (a risk assessment model) the patient's lifetime risk is 3.5% and her 10 year risk is 1.3%. According to the ACR, ACS, and NCCN guidelines, an annual breast MRI exam along with mammogram is recommended if the patient's lifetime risk is 20% or greater. This exam was interpreted at Station ID: [id number]. NOTE: For mammograms, a report in lay terms will be sent to the patient. Approximately 15% of breast malignancies will not be visualized mammographically. In the management of a palpable breast mass, a negative mammogram must not discourage biopsy of a clinically suspicious lesion. Electronically Signed By: Ajay mercado/kari:03/16/2022 17:30:27 letter sent: Normal Exam ACR BI-RADS Category 1: Negative [id number]
== END ==
PROVIDERS: PCP Family Medicine; Referring Provider Family Medicine; Visit Provider Family Medicine
DX: Z12.31 Encounter for screening mammogram for malignant neoplasm of breast (principal)
CPT/HCPCS: 77063; 77067

== ENCOUNTER → 2023-04-19 11:34 | Outpatient (CLI) | payer OTHER, SELFPAY ==
--- NOTE | 2023-04-19 | DI.MG.S_ITS ---
BILATERAL DIGITAL SCREENING MAMMOGRAM 3D/2D WITH CAD: 04/19/2023 CLINICAL: Routine screening. Comparison is made to exams dated: 02/21/2021 mammogram, 03/16/2022 mammogram, and 06/10/2019 mammogram - [facility]. There are scattered areas of fibroglandular density in both breasts (category b / 25%-50% glandular tissue). Current study was also evaluated with a Computer Aided Detection (CAD) system. No significant masses, calcifications, or other findings are seen in either breast. There has been no significant interval change. IMPRESSION: NEGATIVE There is no mammographic evidence of malignancy. A 1 year screening mammogram is recommended. Based on the Tyrer Cuzick model (a risk assessment model) the patient's lifetime risk is 5.2% and her 10 year risk is 2.0%. According to the ACR, ACS, and NCCN guidelines, an annual breast MRI exam along with mammogram is recommended if the patient's lifetime risk is 20% or greater. This exam was interpreted at Station ID: [id number]. NOTE: For mammograms, a report in lay terms will be sent to the patient. Approximately 15% of breast malignancies will not be visualized mammographically. In the management of a palpable breast mass, a negative mammogram must not discourage biopsy of a clinically suspicious lesion. Electronically Signed By: Tere perez/kari:04/19/2023 14:39:55 letter sent: Normal Exam ACR BI-RADS Category 1: Negative [id number]
== END ==
LOC: MAMMO 11:35
PROVIDERS: PCP Family Medicine; Referring Provider Family Medicine; Visit Provider Family Medicine
DX: Z12.31 Encounter for screening mammogram for malignant neoplasm of breast (principal); R92.323 Mammographic fibroglandular density, bilateral breasts
CPT/HCPCS: 77063; 77067

== ENCOUNTER → 2023-09-08 08:00 | Outpatient (CLI) | payer OTHER, SELFPAY ==
[2023-09-08 09:19] LABS: Hemoglobin A1C% w Est Avg Glu 5.1 % (4.0-6.0)
[2023-09-08 09:34] LABS: Alanine Aminotransferase 15 IU/L (<35); Albumin 4.4 g/dL (3.5-5.0); Albumin Globulin Ratio 1.7 (1.0-2.8); Alkaline Phosphatase 76 U/L (38-126); Aspartate Aminotransferase 20 IU/L (14-36); BUN Creatinine Ratio 30.3 (6-22); Bilirubin Total 0.8 mg/dL (0.2-1.3); Blood Urea Nitrogen 23 mg/dL (7-17); Calcium 9.2 mg/dL (8.4-10.2); Carbon Dioxide 31 mmol/L (22-32); Chloride 107 mmol/L (98-107); Cholesterol 196 mg/dL (140-199); Estimated Glomerular Filt Rate > 60 mL/min (>60); Globulin 2.6 g/dL (1.7-4.1); Glucose 101 mg/dL (80-110); HDL Cholesterol 82 mg/dL (40-60); HEMOLYSIS < 15 (0-50); LDL Cholesterol Calculated 94 mg/dL (<100); Potassium 4.9 mmol/L (3.4-5.1); Sodium 140 mmol/L (137-145); Triglycerides 98 mg/dL (35-150)
[2023-09-08 09:57] LABS: HIV 1 & 2 Ab/Ag 4th Gen Combo NEGATIVE (NEGATIVE)
[2023-09-09 15:52] LABS: Hep C Virus Ab w/Reflex Quant NEGATIVE s/c (NEGATIVE)
== END ==
PROVIDERS: PCP Family Medicine; Referring Provider Family Medicine; Visit Provider Family Medicine
DX: E66.01 Morbid (severe) obesity due to excess calories (principal); I10 Essential (primary) hypertension; R73.01 Impaired fasting glucose
CPT/HCPCS: 36415; 80053; 80061; 83036; 86803; 87389

== ENCOUNTER → 2024-03-03 14:10 | Outpatient (CLI) | payer OTHER, SELFPAY | PROVIDERS: PCP Family Medicine; Visit Provider Family Medicine | DX: R39.198 Other difficulties with micturition (principal) | CPT/HCPCS: 87077; 87086; 87186 ==

== ENCOUNTER → 2024-03-30 09:50 | Outpatient (CLI) | payer OTHER, SELFPAY | PROVIDERS: PCP Family Medicine; Visit Provider Urology | DX: N32.81 Overactive bladder (principal); R33.9 Retention of urine, unspecified; R39.9 Unspecified symptoms and signs involving the genitourinary system | CPT/HCPCS: 87077; 87086 ==

== ENCOUNTER → 2024-06-28 09:11 | Outpatient (CLI) | payer OTHER, SELFPAY | PROVIDERS: PCP Family Medicine; Visit Provider Urology | DX: N21.0 Calculus in bladder (principal); N32.81 Overactive bladder; R33.9 Retention of urine, unspecified; R39.12 Poor urinary stream; R39.14 Feeling of incomplete bladder emptying; R35.1 Nocturia; R39.9 Unspecified symptoms and signs involving the genitourinary system | CPT/HCPCS: 51798; 81002; 87077; 87086; 87186; 99214 ==

== ENCOUNTER → 2024-09-06 10:11 | Outpatient (CLI) | payer OTHER, SELFPAY | PROVIDERS: PCP Family Medicine; Visit Provider Urology | DX: N32.81 Overactive bladder (principal); R33.9 Retention of urine, unspecified; N21.0 Calculus in bladder; Z68.42 Body mass index [BMI] 45.0-49.9, adult | CPT/HCPCS: 51798; 81002; 87077; 87086; 87186; 99214 ==

== ENCOUNTER 2024-09-15 09:16 | Day surgery (SDC) | payer OTHER, SELFPAY ==
[2024-09-08 14:01] VITALS: BMI 45.7
[2024-09-15] VITALS (7 sets, daily range): BP systolic 95–129; BP diastolic 43–75; PULSE 82–94; RESP 12–20; TEMP 36.1–36.4; O2SAT 95–99; BMI 45.2
[2024-09-15] MEDS: LACTATED RINGERS 1,000 ML 42 ML IV (09:38)
[2024-09-15] MEDS: ACETAMINOPHEN 325 MG TABLET 975 MG PO (09:39)
--- NOTE | 2024-09-15 10:15 | PM.PREOP ---
Pre-operative Note COVID-19 COVID-19 status: Not tested Interval Note History & Physical reviewed/Exam performed by Physician: Yes Changes to H&P: No
[2024-09-15] MEDS: levoFLOXacin 500 MG/100 ML PIGGYBACK 100 MG IV (10:40)
--- NOTE | 2024-09-15 11:00 | SUR.OPER ---
Lithotomy on padded OR bed, head on pillow, arms secured on padded arm boards at <90 degrees abduction. Legs secured in padded yellow fins stirrups.
[2024-09-15] MEDS: ONABOTULINUMTOXINA 100 UNIT VIAL INJ (11:08)
--- NOTE | 2024-09-15 12:02 | PM.OP.1 ---
Operative Date/Time/Diagnoses Date of procedure: 09/15/24 Time of procedure: 10:45 Pre-op diagnosis: Overactive bladder, bladder calculus Post-op diagnosis: same Procedure & Clinicians Procedure: Cystoscopy Intravesical instillation of botox Same procedure as scheduled: No (Did not perform cystolithalopaxy) Indications: 59 y/o F noted to have a <1cm bladder calculus along her anterior bladder wall w/o appreciation of erosion of her mesh into her bladder on cystoscopy in Mar following a reported personal history of a total abdominal hysterectomy w/ placement of TVT and noted mesh erosion into her bladder w/ a large bladder stone treated w/ cystolithalopaxy in the past. Discussed that given the location w/in her bladder, would strongly recommend observation at this point as trying to remove this stone could lead to more exposure of her mesh, should it truly be eroded into the bladder and it just wasn't readily visible on her cystoscopy. However, she is undergoing a cystoscopy with intravesical instillation of Botox under general anesthesia, therefore, she would strongly like for me to attempt removal of this stone. Surgeon: Henyr Harden Click Yes if Unassisted: Yes Anesthesia Type: General Operative Notes Findings: Less than 5mm stone appreciated on anterior wall of her bladder, no visible mesh appreciated, unremarkable cystoscopy. Closure Type: not applicable Specimen(s): none sent Estimated Blood Loss (mL): 2 Blood products transfused: none Procedure in detail: Patient was identified in the preoperative holding area and consent confirmed. She was then brought to the operating room where general anesthesia was induced. She was then placed in the low lithotomy position. She was then prepped and draped in the usual sterile fashion. A surgical timeout was conducted and all were in agreement. Access to the bladder was obtained via a 21Fr cystoscope. Complete cystoscopy was then performed using a 30 and 70 degree lens. Bilateral ureteral orifices were easily visualized and noted to be orthotopic in nature. No concerning masses or lesions were noted. A less than 5mm stone was appreciated on anterior wall of her bladder, no visible mesh was appreciated. A total of 100 units of Botox was then mixed with 10cc of normal saline. A total of 20 aliquots of 0.5cc of this mixture was instilled along her posterior bladder wall. Hemostasis was evaluated and noted to be excellent at case end. Anesthesia was reversed, he was extubated in the OR and transferred to the PACU in stable condition for recovery. Complications: none Post-operative Condition: stable Disposition: PACU Plan for aftercare: Discharge home from PACU. Will return to Urology clinic as needed in the future.
== END 2024-09-15 11:56 | disposition home or self-care (01) ==
PROVIDERS: PCP Family Medicine; Referring Provider Urology; Visit Provider Urology
PROC: 0TCB8ZZ Extirpation of Matter from Bladder, Via Natural or Artificial Opening Endoscopic (ICD-10-PCS; CPT 52287; principal; 2024-09-15 10:45)
DX: N32.81 Overactive bladder (principal); N21.0 Calculus in bladder; E66.01 Morbid (severe) obesity due to excess calories; Z68.42 Body mass index [BMI] 45.0-49.9, adult; I10 Essential (primary) hypertension; F43.10 Post-traumatic stress disorder, unspecified; M17.0 Bilateral primary osteoarthritis of knee; M79.7 Fibromyalgia; Z90.49 Acquired absence of other specified parts of digestive tract; Z98.1 Arthrodesis status
CPT/HCPCS: 52287; J0330; J0585; J1100; J1885; J1956; J2250; J2405; J2704; J3010

== ENCOUNTER → 2024-09-22 14:40 | Outpatient (CLI) | payer OTHER, SELFPAY ==
[2024-09-22 16:17] LABS: Appearance Urine UA CLEAR; Bilirubin Urine UA NEGATIVE (NEGATIVE); Color Urine UA YELLOW; Glucose Urine UA NEGATIVE (Negative); Ketones Urine UA NEGATIVE (NEGATIVE); Leukocyte Esterase Urine UA NEGATIVE (NEGATIVE); Nitrite Urine UA NEGATIVE (Negative); Occult Blood Urine UA NEGATIVE (Negative); Protein Urine UA NEGATIVE (Negative); Specific Gravity Urine UA 1.015 (1.000-1.035); Urobilinogen Urine UA 0.2 E.U./dL (0.2)
[2024-09-22 16:47] LABS: Urine Volume Low Vol <10mL (spun)
[2024-09-22 16:54] LABS: Bacteria Urine Moderate (10-30); RBC Urine None Seen (0-5/HPF); Squamous Epithelial Cell Urine 10-30 /HPF (0-5/HPF); WBC Urine 0-1/HPF (0-5/HPF)
[2024-09-22 16:55] LABS: Culture Indicated Urine Cult Not Indicated; Mucus Urine 2+ (Negative)
== END ==
PROVIDERS: PCP Family Medicine; Referring Provider Urology; Visit Provider Urology
DX: R39.9 Unspecified symptoms and signs involving the genitourinary system (principal)
CPT/HCPCS: 81001

== ENCOUNTER → 2024-12-18 17:16 | Outpatient (CLI) | payer OTHER, SELFPAY ==
[2024-12-18 17:39] LABS: Appearance Urine UA CLOUDY; Bilirubin Urine UA NEGATIVE (NEGATIVE); Color Urine UA YELLOW; Glucose Urine UA NEGATIVE (Negative); Ketones Urine UA NEGATIVE (NEGATIVE); Leukocyte Esterase Urine UA 2+ (NEGATIVE); Nitrite Urine UA POSITIVE (Negative); Occult Blood Urine UA TRACE-INTACT (Negative); Protein Urine UA NEGATIVE (Negative); Specific Gravity Urine UA 1.010 (1.000-1.035); Urobilinogen Urine UA 0.2 E.U./dL (0.2); pH Urine UA 6.5 (4.5-8.0)
[2024-12-18 17:47] LABS: Culture Indicated Urine Specimen Cultured
== END ==
PROVIDERS: PCP Family Medicine; Referring Provider Urology; Visit Provider Urology
DX: R39.9 Unspecified symptoms and signs involving the genitourinary system (principal)
CPT/HCPCS: 81001; 87077; 87086; 87186

== ENCOUNTER → 2025-01-10 10:56 | Outpatient (CLI) | payer OTHER, SELFPAY ==
[2025-01-10 12:14] LABS: Appearance Urine UA CLEAR; Bilirubin Urine UA NEGATIVE (NEGATIVE); Color Urine UA YELLOW; Glucose Urine UA NEGATIVE (Negative); Ketones Urine UA NEGATIVE (NEGATIVE); Leukocyte Esterase Urine UA NEGATIVE (NEGATIVE); Nitrite Urine UA NEGATIVE (Negative); Occult Blood Urine UA NEGATIVE (Negative); Protein Urine UA NEGATIVE (Negative); Specific Gravity Urine UA <=1.005 (1.000-1.035); Urobilinogen Urine UA 0.2 E.U./dL (0.2)
[2025-01-10 12:17] LABS: pH Urine UA 5.5 (4.5-8.0)
[2025-01-10 12:19] LABS: Culture Indicated Urine Cult Not Indicated
== END ==
PROVIDERS: PCP Family Medicine; Referring Provider Urology; Visit Provider Urology
DX: R39.9 Unspecified symptoms and signs involving the genitourinary system (principal)
CPT/HCPCS: 81001

== ENCOUNTER → 2025-02-16 09:04 | Outpatient (CLI) | payer OTHER, SELFPAY ==
[2025-02-16 10:18] LABS: Hematocrit 35.4 % (36-46); Hemoglobin 12.1 g/dL (12.0-16.0); Mean Corpuscular HGB Conc 34.1 % (30-36); Mean Corpuscular Hemoglobin 29.7 PG (26-34); Mean Corpuscular Volume 87.2 fL (80-100); Platelet Count 191 X10^3/uL (150-400)
[2025-02-16 10:33] LABS: Alanine Aminotransferase 42 IU/L (<35); Albumin 4.4 g/dL (3.5-5.0); Albumin Globulin Ratio 1.8 (1.0-2.8); Alkaline Phosphatase 82 U/L (38-126); Blood Urea Nitrogen 18 mg/dL (7-17); Calcium 9.3 mg/dL (8.4-10.2); Carbon Dioxide 27 mmol/L (22-32); Chloride 104 mmol/L (98-107); Cholesterol 203 mg/dL (140-199); Estimated Glomerular Filt Rate > 60 mL/min (>60); Globulin 2.5 g/dL (1.7-4.1); Glucose 96 mg/dL (70-99); HDL Cholesterol 88 mg/dL (40-60); HEMOLYSIS < 15 (0-50); Potassium 4.2 mmol/L (3.4-5.1); Sodium 138 mmol/L (137-145); Total Protein 6.9 g/dL (6.3-8.2); Triglycerides 114 mg/dL (35-150)
[2025-02-16 10:48] LABS: Hemoglobin A1C% w Est Avg Glu 5.0 % (4.0-6.0)
== END ==
PROVIDERS: PCP Family Medicine; Referring Provider Family Medicine; Visit Provider Family Medicine
DX: M25.50 Pain in unspecified joint (principal); G62.9 Polyneuropathy, unspecified; I10 Essential (primary) hypertension; E66.01 Morbid (severe) obesity due to excess calories
CPT/HCPCS: 36415; 80053; 80061; 83036; 85027; 85651; 86140; 86200; 86430

== ENCOUNTER → 2025-02-25 10:33 | Outpatient (CLI) | payer OTHER, SELFPAY ==
--- NOTE | 2025-02-25 10:35 | DI.MRI.S_ITS ---
PROCEDURE: MR CERVICAL SPINE WO CON INDICATIONS: radicular LBP TECHNIQUE: Noncontrast sagittal T1 spin echo and T2 fast spin echo, sagittal STIR, foraminal oblique sagittal T2 fast spin echo, and axial gradient echo or T2 fast spin echo through the cervical spine. COMPARISON: Outside Facility, RG, MRI C-SPINE W/O CONTRAST, 10/15/2022, 8:37. FINDINGS: Image quality: Excellent. Alignment and Curvature: Straightening of the normal cervical lordosis. Bone Marrow: ACDF hardware spanning C4 through C7. Marrow demonstrates normal overall signal. Spinal Cord: Visualized spinal cord has normal size and signal. No cerebellar tonsillar herniation. Paraspinous Soft Tissues: No paravertebral masses. Prevertebral soft tissues are normal in thickness. C2-C3: Disc desiccation. Facet and uncovertebral arthropathy. No significant central canal stenosis. Moderate left and no right neural foraminal stenosis is stable. C3-C4: Disc desiccation. Facet and uncovertebral arthropathy. Mild central canal stenosis. Moderate bilateral neural foraminal stenosis. Stable compared to prior. C4-C5: Interval ACDF. Improvement in mild central canal stenosis. Facet and uncovertebral arthropathy. Severe bilateral neural foraminal stenosis is stable. C5-C6: Interbody fusion. Mild facet and uncovertebral arthropathy. Mild central canal stenosis. Mild bilateral neural foraminal stenosis. Stable compared to prior. C6-C7: Postoperative changes. Mild residual central canal stenosis. Facet and uncovertebral arthropathy. Moderate left and mild right neural foraminal stenosis is stable. C7-T1: Disc desiccation. Mild facet and uncovertebral arthropathy. Mild central canal stenosis. Mild bilateral neural foraminal stenosis. Stable compared to prior. IMPRESSION: 1. Multilevel degenerative changes of the cervical spine as described above. There is been interval ACDF with improvement in central canal stenosis at C4-C5. Degenerative changes are otherwise stable compared to prior exam. 2. Mild multilevel central canal stenosis. 3. Severe bilateral neural foraminal stenosis at C4-C5. Multilevel mild and moderate neural foraminal stenosis at other levels. Dictated by: Keith Boyd M.D. on 02/26/2025 at 15:47 Approved by: Keith Boyd M.D. on 02/26/2025 at 15:58
--- NOTE | 2025-02-25 10:35 | DI.MRI.S_ITS ---
PROCEDURE: MR LUMBAR SPINE WO CON INDICATIONS: radicular LBP TECHNIQUE: Noncontrast sagittal T1 spin echo and T2 fast echo, sagittal STIR, and T2 fast spin echo through the lumbar spine. In cases with scoliosis, additional coronal T2 fast spin echo may be performed. COMPARISON: None. FINDINGS: Image quality: Excellent. Alignment and Curvature: There is normal bony alignment. Bone Marrow: Marrow is of normal overall signal. No acute vertebral body compression fractures. Spinal Cord: Conus medullaris terminates at the L1 level. Visualized cord demonstrates normal signal and size. Paraspinous Soft Tissues: No paravertebral masses. Large left renal cyst is partially visualized. T12-L1: Facet arthropathy. No central canal or neural foraminal stenosis. L1-L2: Facet arthropathy. No central canal or neural foraminal stenosis. L2-L3: Disc desiccation and mild height loss. Diffuse disc bulge. Facet arthropathy. Moderate central canal stenosis. Mild left and no right neural foraminal stenosis. L3-L4: Disc desiccation and mild disc bulge. Facet arthropathy. Epidural lipomatosis. Mild central canal stenosis. Mild left and no right neural foraminal stenosis. L4-L5: Disc desiccation. Facet arthropathy. No central canal stenosis. Moderate left and no right neural foraminal stenosis. L5-S1: Facet arthropathy. Disc desiccation and mild diffuse disc bulge with small superimposed central disc protrusion. No central canal stenosis. Moderate bilateral neural foraminal stenosis. IMPRESSION: 1. Multilevel degenerative changes of the lumbar spine as described above. 2. Moderate central canal stenosis at L2-L3. 3. Moderate bilateral neural foraminal stenosis at L5-S1. Moderate left neural foraminal stenosis at L4-5. Dictated by: Keith Boyd M.D. on 02/26/2025 at 15:05 Approved by: Keith Boyd M.D. on 02/26/2025 at 15:10
== END ==
LOC: MRI 10:33
PROVIDERS: PCP Family Medicine; Referring Provider Family Medicine; Visit Provider Family Medicine
DX: M48.02 Spinal stenosis, cervical region (principal); M48.03 Spinal stenosis, cervicothoracic region; M48.061 Spinal stenosis, lumbar region without neurogenic claudication; M48.07 Spinal stenosis, lumbosacral region; M47.812 Spondylosis without myelopathy or radiculopathy, cervical region; M47.813 Spondylosis without myelopathy or radiculopathy, cervicothoracic region; M47.26 Other spondylosis with radiculopathy, lumbar region; M47.27 Other spondylosis with radiculopathy, lumbosacral region; M51.16 Intervertebral disc disorders with radiculopathy, lumbar region; M51.17 Intervertebral disc disorders with radiculopathy, lumbosacral region; M54.2 Cervicalgia; G89.29 Other chronic pain; Z98.1 Arthrodesis status
CPT/HCPCS: 72141; 72148